=== PATIENT | female | born 1960 ===

== ENCOUNTER 2016-09-27 14:31 | Emergency (ER) | payer OTHER ==
[2016-09-27 15:34] VITALS: BP 147/101; PULSE 72; RESP 20; TEMP 97.7; O2SAT 99
--- NOTE | 2016-09-27 16:26 | ED PDOC ---
HPI: General Adult Time Seen by Provider: 09/27/16 15:52 Chief Complaint (Nursing): Flu-like Symptoms Chief Complaint (Provider): Cough History Per: Patient History/Exam Limitations: no limitations Onset/Duration Of Symptoms: Days (x20) Current Symptoms Are (Timing): Still Present Severity: Mild Additional Complaint(s): Patient is a 55 year old female presenting to the ED complaining of cough x20 days. Patient reports productive cough with yellow sputum associated with fever and body aches. PMD: none Past Medical History Reviewed: Historical Data, Nursing Documentation, Vital Signs Vital Signs: Last Vital Signs Temp 97.7 F 09/27/16 15:31 Pulse 72 09/27/16 15:31 Resp 20 09/27/16 15:31 BP 147/101 H 09/27/16 15:31 Pulse Ox 99 09/27/16 16:25 - Medical History PMH: HTN Denies: Chronic Kidney Disease - Family History Family History: States: No Known Family Hx - Home Medications Home Medications: Ambulatory Orders Medication Instructions Recorded Lisinopril/Hydrochlorothiazide 1 each PO DAILY 08/04/16 [Lisinopril-Hctz 20-12.5 mg Tab] Metoprolol Succinate [Toprol XL] 50 mg PO DAILY 08/04/16 amLODIPine [Norvasc] 10 mg PO DAILY 08/04/16 Azithromycin [Zithromax] 250 mg PO DAILY #6 tab 09/27/16 - Allergies Allergies/Adverse Reactions: Allergies Allergy/AdvReac Type Severity Reaction Status Date / Time No Known Allergies Allergy Verified 08/04/16 09:39 Review of Systems ROS Statement: Except As Marked, All Systems Reviewed And Found Negative Constitutional: Positive for: Fever, Other (body aches) Respiratory: Positive for: Cough, Sputum Physical Exam - Reviewed Nursing Documentation Reviewed: Yes Vital Signs Reviewed: Yes - Physical Exam Appears: Positive for: Well, Non-toxic, No Acute Distress Head Exam: Positive for: ATRAUMATIC, NORMAL INSPECTION, NORMOCEPHALIC Skin: Positive for: Normal Color, Warm, DRY Eye Exam: Positive for: Normal appearance, EOMI ENT: Positive for: Normal ENT Inspection Cardiovascular/Chest: Positive for: Regular Rate, Rhythm. Negative for: Gallop , Murmur Respiratory: Positive for: Normal Breath Sounds. Negative for: Accessory Muscle Use, Rhonchi, Respiratory Distress Extremity: Positive for: Normal ROM Neurologic/Psych: Positive for: Alert, Oriented - ECG O2 Sat by Pulse Oximetry: 99 (RA) Pulse Ox Interpretation: Normal Medical Decision Making Medical Decision Making: Time: 15:55 Impression: 55 y/o female with cough Plan: CXR - Normal Scribe Attestation: Documented by Tylor Montes acting as a scribe for Neela Ferrera. Provider Attestation: All medical record entries made by the Scribe were at my direction and personally dictated by me. I have reviewed the chart and agree that the record accurately reflects my personal performance of the history, physical exam, medical decision making, and the department course for this patient. I have also personally directed, reviewed, and agree with the discharge instructions and disposition. Disposition - Clinical Impression Clinical Impression: Cough - Patient ED Disposition Is Patient to be Admitted: No Counseled Patient/Family Regarding: Diagnosis, Need For Followup, Rx Given - Disposition Referrals: [facility] [Outside] Disposition: Routine/Home Disposition Time: 18:06 Condition: GOOD Prescriptions: Azithromycin [Zithromax] 250 mg PO DAILY #6 tab Instructions: Acute Cough (ED) Print Language: CANADIAN
--- NOTE | 2016-09-27 17:02 | RAD ---
HISTORY: cough x 3 weeks COMPARISON: None available. TECHNIQUE: Chest PA and lateral FINDINGS: LUNGS: No focal consolidation. Please note that chest x-ray has limited sensitivity for the detection of pulmonary masses. PLEURA: No significant pleural effusion identified. No definite pneumothorax . CARDIOVASCULAR: Heart size appears top normal. Mildly tortuous aorta. OSSEOUS STRUCTURES: Degenerative changes of the spine. VISUALIZED UPPER ABDOMEN: Unremarkable. OTHER FINDINGS: None. IMPRESSION: No focal consolidation, significant pleural effusion, or definite pneumothorax identified.
== END 2016-09-27 18:12 | disposition home or self-care (01) ==
LOC: H.ER 14:31
DX: R05 Cough (principal)